=== PATIENT | female | born 1975 | race Caucasian/White ===

== ENCOUNTER 2016-04-07 15:37 | Emergency (ER) | payer OTHER ==
[~2016-04-07] VITALS: Ht 165.1 cm; Wt 68.0 kg
[2016-04-07 16:45] LABS: ABSOLUTE BASOPHIL COUNT 0 /CUMM (0.0-0.2); ABSOLUTE EOSINOPHIL COUNT 0 /CUMM (0.0-0.7); ABSOLUTE GRANULOCYTE CT 8.4 /CUMM (1.4-6.5); ABSOLUTE LYMPH COUNT 1.9 /CUMM (1.2-3.4); ABSOLUTE MONOCYTE COUNT 1.3 /CUMM (0.10-0.60); BASOPHIL % 0.4 % (0.0-2.0); EOSINOPHIL % 0.4 % (0-5); GRANULOCYTE % 71.6 % (42.2-75.2); HEMATOCRIT 39.7 % (37-47); MEAN CORPUSCULAR HGB 30.9 PG (27.0-31.0); MEAN CORPUSCULAR HGB CONC 33.8 G/DL (33.0-37.0); MEAN CORPUSCULAR VOLUME 91.3 FL (81.0-99.0); MEAN PLATELET VOLUME 9.7 FL (7.4-10.4); PLATELET COUNT 151 /CUMM (130-400); RBC DISTRIBUTION WIDTH 12.6 % (11.5-14.5); RED BLOOD CELL CT 4.35 /CUMM (4.20-5.40); WHITE BLOOD CELL COUNT 11.7 /CUMM (4.8-10.8)
--- NOTE | 2016-04-07 18:06 | ED GI/GU/ABDOMINAL COMPLAINT ---
History of Present Illness General Chief Complaint: Abdominal Pain/Flank Pain Stated Complaint: "ABD PAIN AND I NEED CAT SCAN AND BLOOD WORK DONE" Source: patient Exam Limitations: no limitations Vital Signs & Intake/Output Vital Signs & Intake/Output Vital Signs Date Time Temp Pulse Resp B/P Pulse O2 O2 Flow FiO2 Ox Delivery Rate 04/07 2020 98.1 84 18 125/70 99 Room Air 04/07 1808 98.0 80 16 112/58 99 Room Air 04/07 1610 97.4 94 20 123/57 97 Room Air Room Air Allergies Coded Allergies: NO KNOWN ALLERGIES (04/07/16) Reconcile Medications No Known Home Medications Triage Note: PT TO ED WITH C/O LOW ABD PAIN, "MORE PAIN TO THE RIGHT WHEN THEY PRESS ON IT, MY HAD THE FLU, ALSO I HAVE MY PERIOD, JUST GOT IT YESTERDAY". Triage Nurses Notes Reviewed? yes ? N Is pt currently ? No HPI: THIS PATIENT is a 41-year-old female who presented to the emergency department today for evaluation of abdominal pressure and bloating. The patient reported that her was diagnosed with the flu, so because they are supposed to be traveling tomorrow, she called her doctor who prescribed her Tamiflu prophylactically. She reported that she started the Tamiflu on Sunday, once a day, for 10 days. The patient reported that at that time she was not having any symptoms, "it was just prophylactic." 2 days ago she noticed that she was moving her bowels more often than normal. She reported that her bowels are normally loose and after a bowel movement she typically gets some pressure in her abdomen which then resolves. However, today the patient noticed that she was feeling chilled and had a low-grade fever around 99F. She reported that she has had the abdominal bloating and pressure for approximately 15 hours constantly, which is not normal for her. She denied any pain. She reported, "it feels like I have to pass gas, but I have only been passing a little bit." She reported some intermittent associated nausea, but no vomiting. The patient went to see her doctor today who did an influenza swab which was negative. She reported that she was tender to palpation on examination in the right lower quadrant, so her doctor sent her in for a CAT scan to rule out diverticulitis and appendicitis. The patient denied any chest pain, difficulty breathing, back pain, urinary burning, urgency, frequency, or blood in the urine. (GLENDA WOODY PA-C) Past History Travel History Traveled to [place] past 21 day No Medical History Any Pertinent Medical History? see below for history Neurological: migraine EENT: vERTIGO Cardiovascular: MVP Respiratory: NONE Gastrointestinal: hiatal hernia Hepatic: NONE Renal: NONE Musculoskeletal: NONE Psychiatric: anxiety Endocrine: NONE Blood Disorders: NONE Cancer(s): NONE CURTAIN STITCHER/Reproductive: NONE Surgical History Surgical History: non-contributory Psychosocial History What is your primary language Hungarian Tobacco Use: Never used ETOH Use: occasional use Illicit Drug Use: denies illicit drug use Family History Hx Contributory? No (GLENDA WOODY PA-C) Review of Systems Review of Systems Constitutional: Reports: see HPI. EENTM: Reports: no symptoms. Respiratory: Reports: no symptoms. Cardiovascular: Reports: no symptoms. GI: Reports: see HPI. Genitourinary: Reports: no symptoms. Musculoskeletal: Reports: no symptoms. Skin: Reports: no symptoms. Neurological/Psychological: Reports: no symptoms. All Other Systems: Reviewed and Negative (GLENDA WOODY PA-C) Physical Exam Physical Exam Gastrointestinal: normal bowel sounds, soft, no organomegaly, NO MASSES APPRECIATED. nONDISTENDED. tENDERNESS TO PALPATION DIFFUSELY ACROSS THE ABDOMEN. pOSITIVE mCbURNEY'S POINT TENDERNESS. pOSITIVE rOVSING SIGN. nEGATIVE PSOAS SIGN. nEGATIVE OBTURATOR SIGN. nO REBOUND OR GUARDING. Comments: Well-developed well-nourished person in no acute distress HEENT: Normal EENT exam, moist mucous membranes Pupils equally round and reactive to light. Neck: Supple, no lymphadenopathy Back: Normal inspection. No midline tenderness. No CVA tenderness Cardiovascular: Regular rate and rhythm with no murmurs, rubs, or gallops Respiratory: Chest nontender. No respiratory distress. Breath sounds clear to auscultation bilaterally Extremity: Normal and equal pulses. Neuro: Alert oriented x3, cranial nerves II through XII grossly intact. Skin: No appreciable rash on exposed skin, skin is warm and dry. Psych: Mood and affect is normal Core Measures ACS in differential dx? No Severe Sepsis Present: No Septic Shock Present: No (GLENDA WOODY PA-C) Progress Differential Diagnosis: AAA, AMI, appendicitis, biliary colic, bowel obstruction , colon cancer, cholecystitis, diverticulitis, ectopic , endometritis, gastritis, hepatitis, ischemic bowel, inflamm bowel dis, intrauterine , kidney stone, ovarian cyst, ovarian torsion, pancreatitis, PID/cervicitis, PUD/ GERD, perforated viscous, threatened AB, UTI/pyelo Plan of Care: Orders Procedure Date/time Status Add-on Test (ER Only) 04/07 1720 Active URINE 04/07 1614 Complete URINALYSIS 04/07 1614 Complete LIPASE 04/07 1613 Complete COMPREHENSIVE METABOLIC PANEL 04/07 1613 Complete CBC WITHOUT DIFFERENTIAL 04/07 161 Complete AMYLASE 04/07 161 Complete HUMAN BETA HCG SCREEN 04/07 1515 Complete Laboratory Tests 04/07/16 1801: Urinalysis LIGHT H, Urine Color STRAW, Urine Clarity CLEAR, Urine pH 6.0, Ur Specific Marked Tree 1.010, Urine Protein NEG, Urine Ketones 15 H, Urine Nitrite NEG, Urine Bilirubin NEG, Urine Urobilinogen 0.2, Ur Leukocyte Esterase NEG, Ur Microscopic SEDIMENT EXAMINED, Urine RBC 15-25 H, Urine WBC RARE, Ur Epithelial Cells MOD H, Urine Mucus FEW, Urine Hemoglobin LARGE H, Urine Glucose NEG, Urine Test NEGATIVE 04/07/16 1515: Anion Gap 11, Estimated GFR > 60, BUN/Creatinine Ratio 18.6, Glucose 94, Calcium 8.9, Total Bilirubin 1.1, AST 18, ALT 35, Alkaline Phosphatase 59, Total Protein 6.9, Albumin 4.1, Globulin 2.8, Albumin/Globulin Ratio 1.5, Amylase 59, Lipase 108, Total Beta HCG NEGATIVE, CBC w Diff NO MAN DIFF REQ, RBC 4.35, MCV 91.3, MCH 30.9, RDW 12.6, MPV 9.7, Gran % 71.6, Lymphocytes % 16.1 L, Monocytes % 11.5 H, Eosinophils % 0.4, Basophils % 0.4, Absolute Granulocytes 8.4 H, Absolute Lymphocytes 1.9, Absolute Monocytes 1.3 H, Absolute Eosinophils 0, Absolute Basophils 0, PUBS MCHC 33.8 Diagnostic Imaging: Viewed by Me: CT Scan. Discussed w/RAD: CT Scan. Radiology Impression: PATIENT: GARRETT [place] PRESENT AGE: 41 PATIENT ACCOUNT NO: [id number] : 76 LOCATION: [facility] ORDERING PHYSICIAN: GLENDA WOODY PA-C SERVICE DATE: 04/07/16 EXAM TYPE: CAT - CT ABD & PELVIS W IV CONTRAST EXAMINATION: CT ABDOMEN AND PELVIS WITH CONTRAST CLINICAL INFORMATION: Abdominal pain. Assess for appendicitis or diverticulitis. COMPARISON: None. TECHNIQUE: Multidetector volumetric imaging was performed of the abdomen and pelvis before and after the IV administration of 93 mL of Optiray 320 intravenous contrast. Sagittal and coronal reformatted images were obtained on the technologist's workstation. DLP: 330 mGy-cm. FINDINGS: LUNG BASES: There is minor groundglass opacification in the left lower lobe which may be accentuated by slight motion at this level. The visualized heart and pericardium appear unremarkable. LIVER, GALLBLADDER, AND BILIARY TREE: The liver is normal in size, shape, and attenuation. No focal hepatic lesion or biliary ductal dilatation is present. The gallbladder is unremarkable with no evidence of radiopaque gallstones, gallbladder wall thickening, or obvious pericholecystic inflammatory changes. PANCREAS: Unremarkable. SPLEEN: Unremarkable. ADRENAL GLANDS: Unremarkable. KIDNEYS AND URETERS: The kidneys are normal in size, shape, and attenuation. No hydronephrosis, hydroureter, or calculi seen. No perinephric stranding. BLADDER: Unremarkable. GASTROINTESTINAL TRACT: Loops of small and large bowel appear normal in caliber. The appendix is not definitively visualized. There are multiple collapsed loops of small bowel adjacent to the cecum as well as the possibility of intra-abdominal fat which limits the evaluation for the appendix. No focal inflammatory change in the right lower quadrant is visualized however. ABDOMINAL WALL: No significant hernia is appreciated. LYMPH NODES: There is nonspecific platelike/nodular opacity within the right inguinal region. This is superficial to the vessels. The area of involvement measures approximately 2.4 cm. The adjacent subcutaneous fat is fairly well preserved and there is no skin thickening. VASCULAR: Unremarkable. PELVIC VISCERA: The uterine fundus appear slightly prominent. The fibroid uterus is hard to exclude. The adnexa appear unremarkable. OSSEOUS STRUCTURES: No acute osseous abnormalities. No spondylolysis. There is a minor levoconvex lumbar scoliosis. IMPRESSION: Nonspecific platelike/nodular soft tissue thickening within the right inguinal region. Correlation with exam and any recent instrumentation or trauma to this locale is recommended. The appendix is not definitively visualized. However, there is no focal inflammatory change in the right lower quadrant of the abdomen. The remainder of the bowel appears unremarkable. No evidence of diverticulitis. Minor groundglass attenuation within the left lower lobe of the lung, possibly an accentuated by slight motion in this region. No definitive consolidation in the lung bases. DICTATED BY: KIN POLLARD MD DATE/TIME DICTATED:04/07/161904 LOAN SERVICING SPECIALIST:JORDON DATE/ TIME TRANSCRIBED:04/07/161904 CONFIDENTIAL, DO NOT COPY WITHOUT APPROPRIATE AUTHORIZATION. <Electronically signed in Other Vendor System> SIGNED BY: KIN POLLARD MD 04/07/161918 Initial ED EKG: none Comments: 04/07/2016 8:13:18 PM: Discussed CT scan findings with the patient. She reported that she had mesh in the right groin region where the CT scan is reading a soft tissue thickening. Reported she is due to have it removed. Stable for discharge home. (GLENDA WOODY PA-C) Departure Departure Disposition: HOME OR SELF CARE Condition: Stable Clinical Impression Primary Impression: Abdominal discomfort Referrals: MILKA GUERIN,LESLEY Darden (PCP/Family) Additional Instructions: Please take all previously prescribed medications as directed. Follow-up with your primary care physician. Return for any worsening symptoms or concerns. Departure Forms: Customer Survey General Discharge Information Prescriptions: Current Visit Scripts No Known Home Medications (GLENDA WOODY PA-C) PA/MAINTENANCE MECHANIC 2ND SHIFT Co-Sign Statement Statement: ED Attending supervision documentation- [] I saw and evaluated the patient. I have also reviewed all the pertinent lab results and diagnostic results. I agree with the findings and the plan of care as documented in the PA's/MAINTENANCE MECHANIC 2ND SHIFT's documentation. [X] I have reviewed the ED Record and agree with the PA's/MAINTENANCE MECHANIC 2ND SHIFT's documentation. [] Additions or exceptions (if any) to the PAs/MAINTENANCE MECHANIC 2ND SHIFT's note and plan are summarized below: [] (CORBY COOK DO)
--- NOTE | 2016-04-07 19:19 | CT SCAN REPORT ---
EXAMINATION: CT ABDOMEN AND PELVIS WITH CONTRAST CLINICAL INFORMATION: Abdominal pain. Assess for appendicitis or diverticulitis. COMPARISON: None. TECHNIQUE: Multidetector volumetric imaging was performed of the abdomen and pelvis before and after the IV administration of 93 mL of Optiray 320 intravenous contrast. Sagittal and coronal reformatted images were obtained on the technologist's workstation. DLP: 330 mGy-cm. FINDINGS: LUNG BASES: There is minor groundglass opacification in the left lower lobe which may be accentuated by slight motion at this level. The visualized heart and pericardium appear unremarkable. LIVER, GALLBLADDER, AND BILIARY TREE: The liver is normal in size, shape, and attenuation. No focal hepatic lesion or biliary ductal dilatation is present. The gallbladder is unremarkable with no evidence of radiopaque gallstones, gallbladder wall thickening, or obvious pericholecystic inflammatory changes. PANCREAS: Unremarkable. SPLEEN: Unremarkable. ADRENAL GLANDS: Unremarkable. KIDNEYS AND URETERS: The kidneys are normal in size, shape, and attenuation. No hydronephrosis, hydroureter, or calculi seen. No perinephric stranding. BLADDER: Unremarkable. GASTROINTESTINAL TRACT: Loops of small and large bowel appear normal in caliber. The appendix is not definitively visualized. There are multiple collapsed loops of small bowel adjacent to the cecum as well as the possibility of intra-abdominal fat which limits the evaluation for the appendix. No focal inflammatory change in the right lower quadrant is visualized however. ABDOMINAL WALL: No significant hernia is appreciated. LYMPH NODES: There is nonspecific platelike/nodular opacity within the right inguinal region. This is superficial to the vessels. The area of involvement measures approximately 2.4 cm. The adjacent subcutaneous fat is fairly well preserved and there is no skin thickening. VASCULAR: Unremarkable. PELVIC VISCERA: The uterine fundus appear slightly prominent. The fibroid uterus is hard to exclude. The adnexa appear unremarkable. OSSEOUS STRUCTURES: No acute osseous abnormalities. No spondylolysis. There is a minor levoconvex lumbar scoliosis. IMPRESSION: Nonspecific platelike/nodular soft tissue thickening within the right inguinal region. Correlation with exam and any recent instrumentation or trauma to this locale is recommended. The appendix is not definitively visualized. However, there is no focal inflammatory change in the right lower quadrant of the abdomen. The remainder of the bowel appears unremarkable. No evidence of diverticulitis. Minor groundglass attenuation within the left lower lobe of the lung, possibly an accentuated by slight motion in this region. No definitive consolidation in the lung bases.
[2016-04-07 20:21] VITALS: BP 125/70
== END 2016-04-07 20:22 ==
LOC: ERH 15:37
PROVIDERS: Emergency Medicine
DX: R10.31 Right lower quadrant pain (principal)
CPT/HCPCS: 74177; 81001; 81025; 87804; 87804-59; 96361; 96374; J1885